=== PATIENT | male | born 1975 | race Caucasian/White ===

== ENCOUNTER → 2019-12-25 10:59 | Outpatient (CLI) | payer OTHER, SELFPAY ==
--- NOTE | 2019-12-25 11:00 | DI.RAD.S_ITS ---
PROCEDURE: XR ANKLE RT MIN 3V INDICATIONS: right ankle pain TECHNIQUE: 3 views of the ankle were acquired. COMPARISON: None. FINDINGS: Bones: No acute fractures or dislocations. There is a small corticated ossicle inferior to the lateral malleolus compatible with a prior avulsion injury. Ankle mortise is normally aligned. No suspicious bony lesions. Soft tissues: Soft tissue swelling is demonstrated over the lateral malleolus. There is a small tibiotalar joint effusion. Achilles tendon appears normal. IMPRESSION: 1. No acute fracture or subluxation. Dictated by: Richar De La Vega M.D. on 12/25/2019 at 10:14 Approved by: Richar De La Vega M.D. on 12/25/2019 at 10:14
== END ==
PROVIDERS: Referring Provider Physician Assistant; Visit Provider Physician Assistant
DX: M25.571 Pain in right ankle and joints of right foot (principal)
CPT/HCPCS: 73610

== ENCOUNTER → 2020-08-16 12:24 | Outpatient (CLI) | payer OTHER, SELFPAY ==
--- NOTE | 2020-08-16 12:25 | DI.RAD.S_ITS ---
PROCEDURE: XR KNEE RT 3V INDICATIONS: Knee Pain TECHNIQUE: 3 views of the knee were acquired. COMPARISON: None. FINDINGS: Bones: No fractures or dislocations. No suspicious bony lesions. Soft tissues: Moderate suprapatellar joint effusion is seen usion. No suspicious soft tissue calcifications. IMPRESSION: No right knee fracture or dislocation. Moderate suprapatellar joint effusion. Dictated by: Tom Messina M.D. on 08/16/2020 at 13:37 Approved by: Tom Messina M.D. on 08/16/2020 at 13:43
== END ==
PROVIDERS: Referring Provider Physician Assistant; Visit Provider Physician Assistant
DX: M25.569 Pain in unspecified knee (principal)
CPT/HCPCS: 73562

== ENCOUNTER 2020-08-20 14:15 | Outpatient (RCR) | payer OTHER, SELFPAY ==
--- NOTE | 2020-08-20 15:15 | PT.OIE ---
Current Diagnoses Pain in right knee (08/20/20) Visit Care Team Role Provider Type Jim Maddox MD Attending Provider Non-Staff Primary Care Provider Referring Provider Specialty: [facility] Address: [address] [place] [address], [address], [place], [address] Email: Physical Therapy Initial Evaluation PT-OP-A Visit Information Start: 08/20/20 17:36 Freq: Status: Active Protocol: Document 08/20/20 14:30 DCW (Rec: 08/20/20 17:45 DCW [id number]) Out-Patient Physical Therapy Visit Information Visit Information Visit Type Initial Evaluation Visit Start Time 14:30 Visit Stop Time 15:15 Total Visit Minutes 45 Visit Number 1 Number of PRODUCE LABORER Visits 0 Evaluation Information Evaluation Date 08/20/20 PT-OP-B Current Condition Start: 08/20/20 17:36 Freq: Status: Active Protocol: Document 08/20/20 14:30 DCW (Rec: 08/20/20 17:45 DCW [id number]) Current Condition History of Current Condition Onset Date One week Current Complaints Right knee pain History of Current Condition Pt is one week s/p right knee pain following a slow six mile jog. Pt reports there was no actual injury, twist, or fall, just pain the next day along the medial aspect of his right knee. Notes the back of his knee had been feeling really tight, but now it is just the medial pain. Was seen at urgent care, and they recommended a brace and PT. Pt reports use general constant aching, maybe slightly worse pain with stairs. Treatment Goals Patient/Caregiver Goals Return to normal functional activities PT-OP-C Subjective Start: 08/20/20 17:36 Freq: Status: Active Protocol: Document 08/20/20 14:30 DCW (Rec: 08/20/20 17:45 DCW [id number]) OP-PT Subjective Patient Comments Patient Comments The brace seems to help, maybe it's just a reminder to not be stupid with my knee. Patient Reported Progress Improving Patient Questionnaires Lower Extremity Functional Scale LEFS Score 51.25 LEFS Impairment 40 to 59% Impaired (Score 32- 47) OP-PT Pain Assessment Pain Assessment Grid Paper Pain Assessment Grid Completed Yes Location Right Medial Knee Intensity 3 Scale Used Numeric (0 - 10) PT-OP-F Manual Assessment Start: 08/20/20 17:36 Freq: Status: Active Protocol: Document 08/20/20 14:30 DCW (Rec: 08/20/20 17:48 DCW [id number]) Manual Assessments Soft Tissue Assessment Soft Tissue Mobility Assessment Mild tenderness (1/4: Complaint of pain) along medial joint line Joint Mobility Assessment Joint Mobility Assessment No notable joint effusion, good joint mobility PT-OP-G Mobility & Gait Start: 08/20/20 17:36 Freq: Status: Active Protocol: Document 08/20/20 14:30 DCW (Rec: 08/20/20 17:48 DCW [id number]) OP Gait Assessment Gait Gait Assistance Required: Independent Able to Maintain Weight Bearing Status Yes During Gait Assistive Devices Assistive Device None Orthotic/Prosthetic Devices or Brace: No Gait Deviations General Gait Pattern Antalgic Comments Gait Comments Mild R antalgia Stair Climbing Evaluation Evaluation Level of Assist On Stairs Independent Devices Stair Climbing Assistive Devices None Technique/Endurance Stair Climbing Direction Ascend and Descend Stair Climbing Technique Step Over Step Number of Steps Climbed 4 Stair Climbing Set # Repetitions (reps) 2 Comments Stair Climbing Comments Mild noted right knee soreness descending PT-OP-K Range of Motion Start: 08/20/20 17:36 Freq: Status: Active Protocol: Document 08/20/20 14:30 DCW (Rec: 08/20/20 17:48 DCW [id number]) Knee Goniometric Range of Motion Knee Right Knee ROM WFL Yes PT-OP-L Special Tests Start: 08/20/20 17:36 Freq: Status: Active Protocol: Document 08/20/20 14:30 DCW (Rec: 08/20/20 17:50 DCW [id number]) Special Tests Knee Special Tests Varus- 25 Degrees Test Results Negative Varus- 0 Degrees Test Results Negative Valgus- 25 Degrees Test Results Negative Valgus- 0 Degrees Test Results Negative Patellar Grind Test Test Results Negative Patella Tap Test Results Negative July Test Test Results Mild medial pain Reica's Test Results Negative Apprehension Test Test Results Negative Apley's Compression Test Results Mild medial pain Anterior Draw Test Results Negative PT-OP-M Strength Start: 08/20/20 17:36 Freq: Status: Active Protocol: Document 08/20/20 14:30 DCW (Rec: 08/20/20 17:50 DCW [id number]) Knee Strength Knee Manual Muscle Testing Right Flexion (S2) 5 Normal Extension (L3) 5 Normal PT-OP-Q Treatments Start: 08/20/20 17:36 Freq: Status: Active Protocol: Document 08/20/20 14:30 DCW (Rec: 08/20/20 17:51 DCW [id number]) Therapeutic Exercises Sitting Exercises 1 Sitting Exercise Name Hamstring curls Side right Resistance Lv 3 Equipment Used T-band Standing Exercises 1 Standing Exercise Name TKE Side right Resistance Lv 3 Equipment Used T-band PT-OP-T Assessment and Plan Start: 08/20/20 17:36 Freq: Status: Active Protocol: Document 08/20/20 14:30 DCW (Rec: 08/21/20 10:49 DCW [id number]) Physical Therapy Assessment Rehab Potential Rehabilitation Potential Excellent Evaluation Complexity Number of Personal Factors/Comorbidities 0 Number of Body Systems Impaired 1-2 Clinical Presentation at Evaluation Stable Impairments Impairments Activity Tolerance,Pain,Soft Tissue Mobility,Strength Goals Two Impairment Pt unable to jog due to right knee pain Associate Curator Goal (LTG) Pt to return to jogging at least 4 miles with no symptoms LTG Duration 10/20/20 One Impairment Pt does not have an appropriate home exercise program Short Term Goal (STG) Pt to be independent and compliant with an appropriate HEP STG Duration 09/19/20 Assessment Summary Assessment Pt presents with improving right knee pain following an injury while jogging one week ago. Pt testing is largely negative, no signs of structural deficits or joint instability. Pt has mild point -specific tenderness along medial joint line, as well as mild discomfort with medial meniscus with compression. With no instability and mild pain, it appears to be relatively unlikely pt suffered a meniscal or MCL tear, likely a minor sprain that seems to have started healing already. Pt is fairly young and active, and will likely not benefit much more from regular PT than a quick and easy HEP and allowing time for healing. Pt was given simple quad and hamstring strengthening exercises, and advised to take it easy, along with continued compression and rest. Pt should return within the next month to determine how recovery is going and answer any questions that may come up. Pt instructed to call and get in earlier if symptoms change or worsen. Physical Therapy Plan Frequency and Duration Frequency of Treatment Every Other Week Duration of Treatment Two months Plan of Care Start Date 08/20/20 Plan of Care End Date 10/20/20 Therapeutic Interventions Therapeutic Interventions Balance Training,Home Exercise Program,Joint Mobilizations, Manual Therapy,Patient/ Caregiver Education,Self-Care/ Home Management,Therapeutic Activities,Therapeutic Exercises Modalities Cold Pack/Ice Massage,Electric Stimulation,Hot Packs, Ultrasound Next Visit Focus/Plan Next Note Type Treatment Note Next Visit Plan Quad/HS strengthening, assessment of improvement, further testing if indicated
--- NOTE | 2020-08-20 15:15 | PT.OPPOC ---
Physical, Occupational & Speech Therapy At [facility] Current Diagnoses Pain in right knee (08/20/20) Visit Care Team Role Provider Type Jim Maddox MD Attending Provider Non-Staff Primary Care Provider Referring Provider Specialty: [facility] Address: [address] [place] [address], [address], [place], [address] Email: Plan Of Care PT-OP-T Assessment and Plan Start: 08/20/20 17:36 Freq: Status: Active Protocol: Document 08/20/20 14:30 DCW (Rec: 08/21/20 10:49 DCW [id number]) Physical Therapy Assessment Rehab Potential Rehabilitation Potential Excellent Evaluation Complexity Number of Personal Factors/Comorbidities 0 Number of Body Systems Impaired 1-2 Clinical Presentation at Evaluation Stable Impairments Impairments Activity Tolerance,Pain,Soft Tissue Mobility,Strength Goals Two Impairment Pt unable to jog due to right knee pain Personnel Administrator Goal (LTG) Pt to return to jogging at least 4 miles with no symptoms LTG Duration 10/20/20 One Impairment Pt does not have an appropriate home exercise program Short Term Goal (STG) Pt to be independent and compliant with an appropriate HEP STG Duration 09/19/20 Assessment Summary Assessment Pt presents with improving right knee pain following an injury while jogging one week ago. Pt testing is largely negative, no signs of structural deficits or joint instability. Pt has mild point -specific tenderness along medial joint line, as well as mild discomfort with medial meniscus with compression. With no instability and mild pain, it appears to be relatively unlikely pt suffered a meniscal or MCL tear, likely a minor sprain that seems to have started healing already. Pt is fairly young and active, and will likely not benefit much more from regular PT than a quick and easy HEP and allowing time for healing. Pt was given simple quad and hamstring strengthening exercises, and advised to take it easy, along with continued compression and rest. Pt should return within the next month to determine how recovery is going and answer any questions that may come up. Pt instructed to call and get in earlier if symptoms change or worsen. Physical Therapy Plan Frequency and Duration Frequency of Treatment Every Other Week Duration of Treatment Two months Plan of Care Start Date 08/20/20 Plan of Care End Date 10/20/20 Therapeutic Interventions Therapeutic Interventions Balance Training,Home Exercise Program,Joint Mobilizations, Manual Therapy,Patient/ Caregiver Education,Self-Care/ Home Management,Therapeutic Activities,Therapeutic Exercises Modalities Cold Pack/Ice Massage,Electric Stimulation,Hot Packs, Ultrasound Next Visit Focus/Plan Next Note Type Treatment Note Next Visit Plan Quad/HS strengthening, assessment of improvement, further testing if indicated Plan of Care Dates Plan of Care Start Date 08/20/20 Plan of Care End Date 10/20/20 Electronically Signed by: Lamin Bender, PT 08/21/20 2255 Please Sign and Return: I have reviewed this Plan of Care and certify that the skilled therapy services above are required to meet the patient?s needs. Physician Signature Date Printed Name and Credentials Clinical Instructor Signature Printed Name and Credentials
--- NOTE | 2020-10-02 14:48 | PT.OPDS ---
Current Diagnoses Pain in right knee (08/20/20) Visit Care Team Role Provider Type Jim Maddox MD Attending Provider Non-Staff Primary Care Provider Referring Provider Specialty: [facility] Address: [address] [place] [address], [address], [place], [place], [facility] Email: Visit Number Visit Number 1 Discharge Summary PT-OP-B Current Condition Start: 08/20/20 17:36 Freq: Status: Active Protocol: Document 08/20/20 14:30 DCW (Rec: 08/20/20 17:45 DCW [id number]) Current Condition History of Current Condition Onset Date One week Current Complaints Right knee pain History of Current Condition Pt is one week s/p right knee pain following a slow six mile jog. Pt reports there was no actual injury, twist, or fall, just pain the next day along the medial aspect of his right knee. Notes the back of his knee had been feeling really tight, but now it is just the medial pain. Was seen at urgent care, and they recommended a brace and PT. Pt reports use general constant aching, maybe slightly worse pain with stairs. Treatment Goals Patient/Caregiver Goals Return to normal functional activities PT-OP-C Subjective Start: 08/20/20 17:36 Freq: Status: Active Protocol: Document 08/20/20 14:30 DCW (Rec: 08/20/20 17:45 DCW [id number]) OP-PT Subjective Patient Comments Patient Comments The brace seems to help, maybe it's just a reminder to not be stupid with my knee. Patient Reported Progress Improving Patient Questionnaires Lower Extremity Functional Scale LEFS Score 51.25 LEFS Impairment 40 to 59% Impaired (Score 32- 47) OP-PT Pain Assessment Pain Assessment Grid Paper Pain Assessment Grid Completed Yes Location Right Medial Knee Intensity 3 Scale Used Numeric (0 - 10) PT-OP-F Manual Assessment Start: 08/20/20 17:36 Freq: Status: Active Protocol: Document 08/20/20 14:30 DCW (Rec: 08/20/20 17:48 DCW [id number]) Manual Assessments Soft Tissue Assessment Soft Tissue Mobility Assessment Mild tenderness (1/: Complaint of pain) along medial joint line Joint Mobility Assessment Joint Mobility Assessment No notable joint effusion, good joint mobility PT-OP-G Mobility & Gait Start: 08/20/20 17:36 Freq: Status: Active Protocol: Document 08/20/20 14:30 DCW (Rec: 08/20/20 17:48 DCW [id number]) OP Gait Assessment Gait Gait Assistance Required: Independent Able to Maintain Weight Bearing Status Yes During Gait Assistive Devices Assistive Device None Orthotic/Prosthetic Devices or Brace: No Gait Deviations General Gait Pattern Antalgic Comments Gait Comments Mild R antalgia Stair Climbing Evaluation Evaluation Level of Assist On Stairs Independent Devices Stair Climbing Assistive Devices None Technique/Endurance Stair Climbing Direction Ascend and Descend Stair Climbing Technique Step Over Step Number of Steps Climbed 4 Stair Climbing Set # Repetitions (reps) 2 Comments Stair Climbing Comments Mild noted right knee soreness descending PT-OP-K Range of Motion Start: 08/20/20 17:36 Freq: Status: Active Protocol: Document 08/20/20 14:30 DCW (Rec: 08/20/20 17:48 DCW [id number]) Knee Goniometric Range of Motion Knee Right Knee ROM WFL Yes PT-OP-L Special Tests Start: 08/20/20 17:36 Freq: Status: Active Protocol: Document 08/20/20 14:30 DCW (Rec: 08/20/20 17:50 DCW [id number]) Special Tests Knee Special Tests Varus- 25 Degrees Test Results Negative Varus- 0 Degrees Test Results Negative Valgus- 25 Degrees Test Results Negative Valgus- 0 Degrees Test Results Negative Patellar Grind Test Test Results Negative Patella Tap Test Results Negative July Test Test Results Mild medial pain Erica's Test Results Negative Apprehension Test Test Results Negative Apley's Compression Test Results Mild medial pain Anterior Draw Test Results Negative PT-OP-M Strength Start: 08/20/20 17:36 Freq: Status: Active Protocol: Document 08/20/20 14:30 DCW (Rec: 08/20/20 17:50 DCW [id number]) Knee Strength Knee Manual Muscle Testing Right Flexion (S2) 5 Normal Extension (L3) 5 Normal PT-OP-T Assessment and Plan Start: 08/20/20 17:36 Freq: Status: Active Protocol: Document 10/02/20 14:46 DCW (Rec: 10/02/20 14:48 DCW [id number]) Physical Therapy Assessment Assessment Summary Assessment Pt was fairly asymptomatic at [facility], felt he was improving. Pt at that time wanted to schedule a follow-up one month out to make sure everything was still going well. Pt has since canceled that appointment and has not scheduled any follow-up visits . Pt will be discharged from skilled therapy at this time, and will require a new referral in order to return to therapy. Physical Therapy Plan Discharge Physical Therapy Discharge Reasons No Longer Attending PT Next Visit Focus/Plan Next Note Type Discharge Summary
== END 2020-10-03 11:12 | disposition home or self-care (01) ==
LOC: PHYS 14:15
PROVIDERS: PCP Family Medicine; Referring Provider Family Medicine; Visit Provider Family Medicine
DX: M25.561 Pain in right knee (principal)
CPT/HCPCS: 97110; 97161